=== PATIENT | female | born 1985 | race Caucasian/White ===

== ENCOUNTER 2019-11-12 10:43 | Emergency (ER) | payer SELFPAY ==
--- NOTE | ~2019-11-12 | XR_ITS ---
XR chest 1V portable DATE: 11/12/2019 11:41 INDICATION: Chest pain TECHNIQUE: Portable upright AP chest on 11/12/2019 at 1138 hours COMPARISON: 11/16/2018 PA and lateral chest FINDINGS: Normal heart size. No hilar or mediastinal enlargement. No pulmonary infiltrate or consolid ation, pleural effusion or pulmonary vascular congestion or pneumothorax is evident. Included skeletal structures are unremarkable. IMPRESSION: No active cardiopulmonary disease Reviewed, dictated and finalized at location A.
--- NOTE | 2019-11-12 11:01 | ECG_ITS ---
Measurements Intervals [place] Rate: 52 P: -21 RI: 134 QRS: 22 QRSD: 88 T: 3 QT: 444 QTc: 417 Interpretive Statements SINUS OR ECTOPIC ATRIAL BRADYCARDIA WITH SINUS ARRHYTHMIA BASELINE WANDER- I, III, V6 BORDERLINE ECG Electronically Signed On 11-12-2019 12:15:26 CDT by Steve Benavides D.O.
[2019-11-12 11:03] VITALS: BP 135/87; PULSE 59; RESP 20; TEMP 36.7; O2SAT 100
[2019-11-12] MEDS: KETOROLAC 30 MG/ML VIAL (*BKC) IV PUSH (11:25)
[2019-11-12] MEDS: ASPIRIN 81 MG CHEWABLE TABLET 324 MG PO (11:26)
[2019-11-12 11:51] LABS: Alanine Aminotransferase 24 U/L (14-59); Albumin Level 3.7 g/dL (3.4-5.0); Alkaline Phosphatase 63 U/L (46-116); Anion Gap 11.6 mmol/L (7-16); Aspartate Amino Transferase 16 U/L (15-37); Bilirubin,Total 0.5 mg/dL (0.00-1.00); Blood Urea Nitrogen 8 mg/dL (7-18); Calcium 8.4 mg/dL (8.5-10.1); Carbon Dioxide 24 mmol/L (21-32); Chloride 105 mmol/L (98-108); Estimated CRCL calculation 83 ml/min; Estimated Glomerular Filt Rate > 60; Glucose 99 mg/dL (70-99); Osmolality Calculated 282 mOsm/kg (285-295); Potassium 3.6 mmol/L (3.5-5.1); Sodium 137 mmol/L (136-145); Total Protein 6.5 g/dL (6.4-8.2)
[2019-11-12 11:52] LABS: D Dimer 0.19 mg/L (0.19-0.50); Troponin I < 0.02 ng/mL (0.00-0.056)
--- NOTE | 2019-11-12 12:09 | ED.CHESTPAIN ---
HPI - Chest Pain General Chief Complaint: Chest Pain Stated Complaint: Chest pain Source: patient Mode of arrival: ambulatory Limitations: no limitations History of Present Illness HPI narrative: This 34-year-old developed pain in her left chest yesterday which was sharp and constant, rated 10/10. Last night the pain moved more laterally. It persisted through the night. Today the pain has decreased to # 5 /10. The pain gets worse with shoulder and torso movement and bending forward. It is decreased when lying flat. It is not associated with nausea or sweating. It is nonradiating. She had similar chest pain 5 years ago. Cardiology workup was negative. She followed up with Dr. Hawkins pulmonary medicine with eventual resolution of the symptoms. She also complains of having difficulty getting a deep satisfactory breath. She has felt overwhelmed and anxious for the last couple months working at [employer]. This has been worse over the last few weeks. Since being off insurance for the last couple of years she has not seen a counselor or been on medication. Previously she was on clonazepam 0.5 mg at , Related Data Home Medications Medication Instructions Recorded Confirmed No Home Medications 11/12/19 11/12/19 Allergies Allergy/AdvReac Type Severity Reaction Status Date / Time codeine Allergy Hives Verified 11/12/19 11:15 Review of Systems Constitutional: Constitutional: Denies chills and Denies fever(s) ENT: Denies dysphagia and Denies sore throat Comments: Denies heartburn, burping, acidic taste in her mouth. Cardiovascular: Cardiovascular: Denies leg ulcers and Denies leg edema Respiratory: Respiratory: Reports no additional respiratory complaints and Denies cough Gastrointestinal: Gastrointestinal: Reports as per HPI Comments: no melena Genitourinary: Comments: no sex with men Musculoskeletal: Musculoskeletal: Denies muscle weakness Integumentary/Breasts: Skin/Breast: Denies rash Neurologic: Reports other (anxiety) [facility] Past Medical History Medical History (Updated 11/13/19 @ 03:36 by Darion Quiles MD) Anxiety Social History Social History Sexual Orientation (if Verbalized by the Patient): Lesbian, Sampson, or Homosexual Exam Const: General: no acute distress and alert Orientation/consciousness: patient oriented x3 Other: anxious Neck: Neck: no lymphadenopathy noted Chest: Chest palpation & inspection: tenderness (Left upper chest) Resp: Auscultation: clear to auscultation bilaterally Cardio: Rate: regular rate and bradycardic GI: Auscultation: normal bowel sounds Other: nontender : General: Yes no CVA tenderness Back/Spine/Pelvis: Back: no CVA tenderness Skin: General skin exam: normal color Neuro: General: patient oriented x3 Extrem: General: normal to inspection and no edema Other: no calf tenderness Psych: Affect: normal affect and Anxious affect present Course Course Emergency Course: No improvement after IV Toradol or GI cocktail. Lab and X ray results discussed. Vital Signs Vital signs: Vital Signs Temperature 36.7 C 11/12/19 11:03 Pulse Rate 59 L 11/12/19 11:03 Respiratory Rate 20 11/12/19 11:03 Blood Pressure 135/87 11/12/19 11:03 Pulse Oximetry 100 11/12/19 11:03 Temperature 36.7 C 11/12/19 11:03 Pulse Rate 51 L 11/12/19 13:21 Respiratory Rate 20 11/12/19 13:21 Blood Pressure 119/65 11/12/19 13:21 Pulse Oximetry 99 11/12/19 13:21 MDM - Chest Pain MDM Narrative Medical decision making narrative: Pain continuous for over 24 hours, more in the lateral chest today. Pain worsens with shoulder movement. In view of this and continuous chest pain for 24 hours and negative troponin and EKG, chest wall pain the likely dx. Lab Data Result diagrams: 11/12/19 12:08 11/12/19 11:29 Labs: Lab Results 11/12/19 11/12/19 11/12/19 Range/Units 11:29 11:29 1
[2019-11-12 12:14] LABS: Basophils Absolute Auto 0.03 K/mm3 (0.00-0.10); Basophils Percent Auto 0.4 % (0.0-1.0); Eosinophils Absolute Auto 0.13 K/mm3 (0.02-0.50); Eosinophils Percent Auto 1.6 % (1.0-6.0); Hematocrit 39.9 % (35.0-49.0); Hemoglobin 13.6 g/dL (12.0-15.0); Immature Granulocyte Absolute 0.03 K/mm3 (0.00-0.00); Immature Granulocyte Percent A 0.4 % (0.0-0.0); Lymphocytes Absolute Auto 2.49 K/mm3 (1.10-4.50); Mean Corpuscular HGB Conc 34.1 g/dL (32.0-36.0); Mean Corpuscular Hemoglobin 31.6 pg (27.0-31.0); Mean Corpuscular Volume 92.8 fL (78.0-102.0); Mean Platelet Volume 10.6 fl (9.2-11.8); Monocytes Absolute Auto 0.47 K/mm3 (0.10-0.90); Monocytes Percent Auto 5.7 % (2.0-11.0); Neutrophils Absolute Auto 5.1 K/mm3 (1.7-7.2); Neutrophils Percent Auto 61.9 % (50.0-70.0); Platelet Count Result 284 K/mm3 (150-420); Red Cell Distribution Width 12.1 % (11.6-14.4); White Blood Count 8.3 K/mm3 (4.8-10.8)
[2019-11-12] MEDS: MAG HYDROX/ALUMINUM HYD/SIMETH 30 ML, PHENobarb/HYOSCY/ATROPINE/SCOP 32.4 MG, LIDOCAINE... PO (12:32)
[2019-11-12 13:21] VITALS: BP 119/65; PULSE 51; RESP 20; O2SAT 99
== END 2019-11-12 13:29 | disposition home or self-care (01) ==
PROVIDERS: Emergency Provider Family Medicine
DX: R07.89 Other chest pain (principal)
CPT/HCPCS: 36415; 71045; 80053; 84484; 85025; 85380; 93005; 96374; 99284; A9270; J1885

== ENCOUNTER 2020-05-01 15:13 | Emergency (ER) | payer OTHER, SELFPAY ==
[2020-05-01 15:40] VITALS: BP 139/82; PULSE 60; RESP 18; TEMP 36.4; O2SAT 100
--- NOTE | 2020-05-01 15:56 | ED.URI ---
HPI - URI/Sore Throat General Chief Complaint: Upper Respiratory Infection Stated Complaint: Breathing trouble /throat ache Time Seen by Provider: 05/01/20 15:57 Source: patient Mode of arrival: ambulatory Limitations: no limitations History of Present Illness HPI Narrative: previously well 34-year-old woman comes in today complaining of 4 days of throat pain, low-grade fevers, fatigue, body aches and headache, vomiting and diarrhea. She states that she had a rapid and a more definitive COVID test 2 days ago which were negative. she states she has been unable to keep anything down for the last 24 hours. She denies any sick exposures. She does have school age in preschool aged children at home. She denies cough, shortness of breath, chest pain and rash. MD elicited complaint: sore throat Onset (ago): day(s) (4) Consistency: progressively worsening Severity: moderate Exacerbating factors: swallowing Relieving factors: nothing Associated symptoms: fever, myalgias, headache, sore throat, nausea, vomiting and diarrhea Related Data Home Medications Medication Instructions Recorded Confirmed buspirone 10 mg PO BID 05/01/20 05/01/20 mirtazapine 15 mg PO HS 05/01/20 05/01/20 sertraline 100 mg PO DAILY 05/01/20 05/01/20 Allergies Allergy/AdvReac Type Severity Reaction Status Date / Time codeine Allergy Unknown Verified 05/01/20 15:46 Review of Systems Constitutional: Constitutional: Denies chills, Reports fatigue, Reports fever(s) and Denies weakness Eyes: Eyes: Denies change in vision and Denies photophobia ENT: Denies dysphagia, Denies nasal congestion and Denies sore throat Cardiovascular: Cardiovascular: Denies chest pain and Denies radiating jaw, neck or arm pain Respiratory: Respiratory: Denies cough and Denies dyspnea Gastrointestinal: Gastrointestinal: Denies abdominal pain, Reports diarrhea, Reports nausea and Reports vomiting Comments: Complains of knots in her stomach. Genitourinary: Genitourinary: Denies nocturia and Denies dysuria Musculoskeletal: Musculoskeletal: Denies arthralgias and Denies joint swelling Integumentary/Breasts: Skin/Breast: Denies pruritus, Denies erythema and Denies rash Neurologic: Denies vertigo, Denies dizziness and Denies syncope Hematologic/Lymphatic: Hematologic/Lymphatic: Denies easy bleeding and Denies easy bruising Allergic/Immunologic: Allergic/Immunologic: Denies lip swelling and Denies tongue swelling [facility] Social History Social History Smoking status: Current every day smoker Alcohol use details: social Substance use type: marijuana Other substance usage details: occasional Living arrangements: with family Exam Const: General: alert and ill appearing acutely ( For mild) Orientation/consciousness: patient oriented x3 Limitations: no limitations Other: [id number] acute distress. HENMT: Head: normal to inspection Ears: external ears normal, TM's normal bilaterally and EAC's normal General nose exam: Normal nares present Face and sinus: normal facial exam Mouth: Yes moist mucous membranes Throat: posterior oropharynx normal Eyes: Conjunctivae: conjunctivae normal Pupils: Equal, round and reactive pupils present EOM: EOMs intact bilaterally Resp: Effort & Inspection: normal respiratory effort and not labored Auscultation: clear to auscultation bilaterally, no rales, no rhonchi and no wheezes Cardio: Rate: regular rate Rhythm: regular rhythm Heart sounds: no murmurs GI: GI Palp: Yes Soft to palpation, Yes Tenderness to palpation present (GI) ( mildly, diffusely), No Guarding due to palpation present (GI) and No Palpable mass present Skin: General skin exam: normal color, no jaundice and no pallor Rashes: no rashes Neuro: General: patient oriented x3, moves all extremities, no meningeal signs, no focal motor deficits and CN's II-XI intact bilaterally Speech: normal speec
[2020-05-01] MEDS: ONDANSETRON INJ 4 MG/2 ML VIAL IV PUSH (16:22)
[2020-05-01] MEDS: SODIUM CHLORIDE 0.9% IV 1,000 ML 999 ML IV CONT (16:22)
[2020-05-01 16:24] LABS: Basophils Absolute Auto 0.04 K/mm3 (0.00-0.10); Basophils Percent Auto 0.4 % (0.0-1.0); Eosinophils Absolute Auto 0.15 K/mm3 (0.02-0.50); Eosinophils Percent Auto 1.3 % (1.0-6.0); Hematocrit 46.4 % (35.0-49.0); Hemoglobin 15.5 g/dL (12.0-15.0); Immature Granulocyte Absolute 0.03 K/mm3 (0.00-0.00); Immature Granulocyte Percent A 0.3 % (0.0-0.0); Lymphocytes Absolute Auto 2.51 K/mm3 (1.10-4.50); Lymphocytes Percent Auto 22.1 % (18.0-42.0); Mean Corpuscular HGB Conc 33.4 g/dL (32.0-36.0); Mean Corpuscular Hemoglobin 31.1 pg (27.0-31.0); Monocytes Absolute Auto 0.65 K/mm3 (0.10-0.90); Monocytes Percent Auto 5.7 % (2.0-11.0); Neutrophils Percent Auto 70.2 % (50.0-70.0); Platelet Count Result 351 K/mm3 (150-420); Red Blood Count 4.99 M/mm3 (4.20-5.40); Red Cell Distribution Width 12.2 % (11.6-14.4); White Blood Count 11.4 K/mm3 (4.8-10.8)
[2020-05-01 16:26] LABS: Add Urine Microscopic? NO; Appearance Urine Clear (Clear); Bilirubin Urine Negative (Negative); Blood Urine Negative (Negative); Color Urine Yellow (Yellow); Glucose Urine UA Negative (Negative); Ketones Urine Negative (Negative); Leukocyte Esterase Ur Negative (Negative); Nitrate Urine Negative (Negative); Protein Urine Negative (Negative); Specific Grav Ur >= 1.030 (1.010-1.020); Urobilinogen Urine 0.2 mg/dL (0.2-1.0)
[2020-05-01 16:41] LABS: Alanine Aminotransferase 20 U/L (14-59); Albumin Level 4.4 g/dL (3.4-5.0); Alkaline Phosphatase 79 U/L (46-116); Anion Gap 7 mmol/L (8-16); Aspartate Amino Transferase < 10 U/L (15-37); Bilirubin,Total 0.2 mg/dL (0.00-1.00); Blood Urea Nitrogen 15 mg/dL (7-18); Calcium 9.5 mg/dL (8.5-10.1); Carbon Dioxide 29 mmol/L (21-32); Chloride 104 mmol/L (98-108); Estimated CRCL calculation 70 ml/min; Estimated Glomerular Filt Rate > 60; Glucose 104 mg/dL (70-99); Osmolality Calculated 290 mOsm/kg (285-295); Potassium 3.7 mmol/L (3.5-5.1); Sodium 140 mmol/L (136-145); Total Protein 7.9 g/dL (6.4-8.2)
[2020-05-01 16:47] LABS: Influenza Control Valid (Valid)
[2020-05-01 17:06] VITALS: BP 131/72; PULSE 55; RESP 18; O2SAT 98
== END 2020-05-01 17:05 | disposition home or self-care (01) ==
PROVIDERS: Emergency Provider Emergency Medicine
DX: B34.9 Viral infection, unspecified (principal)
CPT/HCPCS: 36415; 80053; 81003; 85025; 87081; 87804; 87880; 96374; 99283; 99284; J2405; J7030

== ENCOUNTER 2020-09-23 06:07 | Emergency (ER) | payer OTHER, SELFPAY ==
[2020-09-23 06:22] VITALS: BP 128/67; PULSE 62; RESP 18; TEMP 36.4; O2SAT 98
--- NOTE | 2020-09-23 06:26 | ED.EYEPROB ---
HPI - Eye Problem General Chief complaint: Eye Problems Stated complaint: L eye pain Time Seen by Provider: 09/23/20 06:27 Source: patient Mode of arrival: ambulatory Limitations: no limitations History of Present Illness HPI Narrative: 34-year-old woman has previously well comes in today complaining of left eye pain and blurred vision that started yesterday. Patient states that she had little bit of light colored drainage yesterday but has had mostly tearing. She denies injury and has not been exposed to welding. She denies prior similar symptoms. chief complaint: eye pain and eye redness Onset (ago): day(s) (1) Onset description: gradual Duration: constant and progressively worsening Location: left eye Eye Symptoms: burning, redness and pain Place: home Mechanism: none Severity: moderate If Pain, Quality: burning Associated symptoms: none Treatments Prior to Arrival: none Related Data Allergies Allergy/AdvReac Type Severity Reaction Status Date / Time codeine Allergy Hives Verified 11/12/19 11:15 Review of Systems Constitutional: Constitutional: Denies chills and Denies fever(s) Eyes: Eyes: Reports as per HPI, Reports change in vision and Reports photophobia ENT: Denies dysphagia, Denies nasal congestion and Denies sore throat Cardiovascular: Cardiovascular: Denies chest pain and Denies radiating jaw, neck or arm pain Respiratory: Respiratory: Denies cough, Denies dyspnea and Denies wheezing Gastrointestinal: Gastrointestinal: Denies nausea and Denies vomiting [facility] Past Medical History Medical History (Updated 09/23/20 @ 06:44 by Darion Prakash MD) Anxiety Social History Social History (Updated 09/23/20 @ 06:40 by Darion Prakash MD) Smoking status: Current every day smoker Substance use: never Living arrangements: with family Exam Const: General: healthy appearing and alert Orientation/consciousness: patient oriented x3 Other: Mild to moderate acute distress. Eyes: Pupils: Equal, round and reactive pupils present EOM: EOMs intact bilaterally Other: Faint corneal abrasion centrally located on the left cornea that highlights with fluorescein. No hyphema evident. Diffuse conjunctival injection. Resp: Effort & Inspection: normal respiratory effort and not labored Auscultation: clear to auscultation bilaterally, no rales, no rhonchi and no wheezes Cardio: Rate: regular rate Rhythm: regular rhythm Heart sounds: no murmurs Skin: General skin exam: normal color, no jaundice and no pallor Rashes: no rashes Neuro: General: patient oriented x3, moves all extremities, no focal motor deficits and CN's II-XI intact bilaterally Speech: normal speech Gait exam (Neuro): Normal gait present Extrem: General: normal to inspection and no clubbing, cyanosis or edema Psych: Appearance: grossly normal and well kempt Mental Status: mental status grossly normal Affect: Anxious affect present Attitude: cooperative Thought content: Yes Normal thought content present Discharge Plan Discharge Clinical Impression: Corneal abrasion Qualifiers: Encounter type: initial encounter Laterality: left Qualified Code(s): S05.02XA - Injury of conjunctiva and corneal abrasion without foreign body, left eye, initial encounter Patient Disposition: Home, Self-Care Condition: Stable Instructions: Corneal Abrasion (ED) Additional Instructions: May use eyedrops for comfort. Do not use Visine or antihistamine drops. Follow-up with your eye doctor in the next day or 2. Prescriptions: New erythromycin 5 mg/gram (0.5 %) ointment 0.5 inch EACH EYE TID 7 Days Qty: 3.5 RF: 0 Follow-up/Referrals: Tina,Melany Mitchell MD [Primary Care Provider] - Time of Disposition: 06:45
[2020-09-23] MEDS: DACRIOSE EYE IRRIGATION 118 ML BOTTLE (06:31)
[2020-09-23] MEDS: FLUORESCEIN SOD 1 MG/STRIP (06:32)
[2020-09-23] MEDS: TETRACAINE HCL 0.5% OPHTH SOLN 4 ML BTL 1 DROP (06:32)
[2020-09-23 06:41] VITALS: BP 122/70; PULSE 60; RESP 18; O2SAT 99
== END 2020-09-23 06:50 | disposition home or self-care (01) ==
PROVIDERS: Emergency Provider Emergency Medicine; PCP Internal Medicine
DX: S05.02XA Injury of conjunctiva and corneal abrasion without foreign body, left eye, initial encounter (principal)
CPT/HCPCS: 99283; A9270